=== PATIENT | female | born 1965 | race Caucasian/White ===

== ENCOUNTER 2025-07-16 17:07 | Emergency (ER) | payer OTHER ==
[2025-07-16 17:19] VITALS: BP 166/72; PULSE 79; RESP 20; TEMP 98.9; BMI 30.7
[2025-07-16 18:40] LABS: ABSOLUTE IMMATURE GRANULOCYTES 0.03 x10^3/uL (0.0-0.031); BASOPHILS # 0.05 x10^3/uL (0.01-0.08); EOSINOPHIL % 0.6 % (0.7-5.8); EOSINOPHILS # 0.06 x10^3/uL (0.04-0.36); MCHC 32.8 g/dl (32.2-35.5); MEAN CELL VOLUME 93.9 fl (79.4-94.8); MEAN PLT VOLUME 10.1 fl (9.4-12.3); MONOCYTE # 0.63 x10^3/uL (0.24-0.86); MONOCYTE % 6.2 % (4.7-12.5); RDW 12.1 % (12.3-16.6)
[2025-07-16 19:01] LABS: GLUCOSE,RANDOM 105.0 mg/dL (74-106); TOT PROT 8.0 g/dl (6.4-8.2)
[2025-07-16 19:02] LABS: CO2 26.0 mmol/L (21-32)
[2025-07-16 19:04] LABS: ALK PHOS 83.0 U/L (40-150)
[2025-07-16 19:06] LABS: SGOT/AST 26.0 U/L (5-34); SGPT/ALT 26.0 U/L (0-55)
[2025-07-16 19:07] LABS: CREATININE 0.64 mg/dL (0.55-1.3)
[2025-07-16] MEDS ORDERED: ACETAMINOPHEN INJECTION 100 ML ONE (19:14)
[2025-07-16 19:22] LABS: HCV DIAGNOSTIC IN-HOUSE W/RFLX NON-REACTIVE (NONREACTIVE)
[2025-07-16 19:23] LABS: HIV INTERPRETATION NEGATIVE (NEGATIVE)
[2025-07-16] MEDS: ACETAMINOPHEN 1000 MG/100 ML BAG IVPB ONE (19:59)
== END 2025-07-16 20:25 | disposition home or self-care (01) ==
LOC: JER 17:07
PROC: 3E033NZ Introduction of Analgesics, Hypnotics, Sedatives into Peripheral Vein, Percutaneous Approach (ICD-10-PCS; principal; 2025-07-16)
DX: R73.03 Prediabetes (principal); R51.9 Headache, unspecified; R42 Dizziness and giddiness
CPT/HCPCS: 36415; 70450-TC; 80053; 83036; 85025; 86803; 87389; 99285-25